=== PATIENT | male | born 1965 | race African-American/Black ===

== ENCOUNTER 2017-09-27 22:30 | Emergency (ER) | payer MEDICAID ==
[~2017-09-27] VITALS: Ht 182.9 cm; Wt 129.0 kg
[2017-09-28] MEDS ORDERED: KETOROLAC 60MG/2ML VIAL IM ONE (02:00)
[2017-09-28] MEDS ORDERED: ACETAMINOPHEN 500MG TABLET PO ONE (02:00)
[2017-09-28] MEDS ORDERED: IBUPROFEN 800MG TABLET PO ONE (09:30)
[2017-09-28 11:05] VITALS: BP 138/86
== END 2017-09-28 11:27 | disposition home or self-care (01) ==
LOC: ER 22:58
DX: M10.9 Gout, unspecified (principal); M19.90 Unspecified osteoarthritis, unspecified site; F31.9 Bipolar disorder, unspecified; F20.9 Schizophrenia, unspecified; I10 Essential (primary) hypertension
CPT/HCPCS: 96372; 99283; J1885; Z7610

== ENCOUNTER 2019-01-28 03:36 | Emergency (ER) | payer MEDICAID ==
[~2019-01-28] VITALS: Ht 180.3 cm; Wt 86.0 kg
[2019-01-28] MEDS ORDERED: KETOROLAC 60MG/2ML VIAL IM STA (04:28)
[2019-01-28] MEDS ORDERED: HYDROCODONE/ACETAMINOPHEN 5/325MG TABLET PO STA ×2 (04:28→06:10)
[2019-01-28] MEDS ORDERED: MORPHINE SULFATE 4 MG/ML CPJ (NOT FOR IM USE) IV ONE (06:30)
[2019-01-28] MEDS ORDERED: LIDOCAINE HCL/PF 1% 10 MG/ML 5ML VIAL IJ ONE (06:30)
[2019-01-28 09:31] VITALS: BP 159/81
== END 2019-01-28 09:38 | disposition home or self-care (01) ==
LOC: ER 03:36
DX: S43.014A Anterior dislocation of right humerus, initial encounter (principal); S42.209A Unspecified fracture of upper end of unspecified humerus, initial encounter for closed fracture; I10 Essential (primary) hypertension; M25.511 Pain in right shoulder; X58.XXXA Exposure to other specified factors, initial encounter; Y93.89 Activity, other specified; Y92.9 Unspecified place or not applicable
CPT/HCPCS: 73030; 96372; 96374; 99284; J1885; J2270; J3490; L3670

== ENCOUNTER 2021-01-25 10:30 | Inpatient (IN) | payer MEDICAID, OTHER ==
[~2021-01-25] VITALS: Ht 180.3 cm; Wt 109.8 kg
[2021-01-25] MEDS ORDERED: CEFTRIAXONE 1 G PREMIX 50 ML IV ONE (12:45)
[2021-01-25] MEDS ORDERED: AZITHROMYCIN 500MG/250ML 250 ML IV ONE (12:45)
[2021-01-25] MEDS ORDERED: DEXAMETHASONE 10 MG/ML VIAL IV ONE (13:00)
[2021-01-25] MEDS ORDERED: SODIUM CHLORIDE 0.9% 1,000 ML IV ONE (13:00)
[2021-01-25 14:31] LABS: BASOPHILS % 0.7 % (0.0-2.0); EOSINOPHILS % 0.7 % (0.0-5.0); HEMOGLOBIN. 11.8 g/dL (14.0-18.0); LYMPHOCYTES % 30.9 % (20.0-50.0); MEAN CORPUSCULAR HEMOGLOBIN 30.6 pg (28.0-32.0); MEAN CORPUSCULAR VOLUME 95.7 fL (80.0-94.0); MEAN PLATELET VOLUME 10.8 fl (7.4-10.4); MONOCYTES % 5.4 % (2.0-8.0); NEUTROPHILS % 62.3 % (40.0-76.0); PLATELET 257 x1000/uL (130-400); RED BLOOD CELL COUNT 3.87 mill/uL (4.7-6.1); RED CELL DISTRIBUTION WIDTH 15.8 % (11.6-14.6)
[2021-01-25 14:34] LABS: CHLORIDE 112 mEq/L (98-107)
[2021-01-25 14:42] LABS: C REACTIVE PROTEIN QUANT 8.1 mg/L (0.0-3.0); D-DIMER 1.03 mg/L FEU (<0.50); INR 1.1; PROTHROMBIN TIME 11.8 sec (9.6-11.0)
[2021-01-25 14:43] LABS: CREATINE KINASE 200 IU/L (39-308)
[2021-01-25] MEDS ORDERED: FUROSEMIDE 40MG/4ML VIAL IVP ONE (15:30)
[2021-01-25] MEDS ORDERED: ONDANSETRON HCL 4MG/2ML INJ IV ONE (16:00)
[2021-01-25] MEDS ORDERED: DIPHENHYDRAMINE 50MG/ML VIAL IV PRN (16:45)
[2021-01-25] MEDS ORDERED: ONDANSETRON HCL 4MG/2ML INJ IV PRN (16:45)
[2021-01-25] MEDS ORDERED: CEFTRIAXONE 1 G PREMIX 50 ML IV SCH (16:45)
[2021-01-25] MEDS ORDERED: ACETAMINOPHEN 325MG TABLET PO PRN (16:45)
[2021-01-25] MEDS ORDERED: ENOXAPARIN 40MG/0.4ML SYR SUBCUT SCH (18:00)
[2021-01-25 18:29] LABS: CLARITY URINE CLEAR (CLEAR); COLOR URINE YELLOW (YELLOW); KETONES URINE NEGATIVE (NEGATIVE); LEUKOCYTE ESTERASE URINE NEGATIVE (NEGATIVE); NITRITE URINE NEGATIVE (NEGATIVE); OCCULT BLOOD URINE NEGATIVE (NEGATIVE); PROTEIN URINE TRACE (NEGATIVE); SPECIFIC GRAVITY URINE 1.007 (1.005-1.030); UROBILINOGEN URINE 0.2 E.U./dL (0.2-1.0)
[2021-01-25] MEDS ORDERED: QUET50TA PO (21:59)
[2021-01-25 22:03] VITALS: BP 171/89
[2021-01-25 22:07] VITALS: BP 171/89
[2021-01-25] MEDS ORDERED: IOHEXOL-350 100 ML BOTTLE ONE (23:21)
[2021-01-26 00:05] VITALS: BP 164/100
[2021-01-26] MEDS: CLONIDINE 0.1MG TABLET PO PRN ×2 (00:06→13:10)
[2021-01-26] MEDS ORDERED: LISI20TA31 PO (01:45)
[2021-01-26 04:00] VITALS: BP 139/70
[2021-01-26 07:01] LABS: BASOPHILS % 0.3 % (0.0-2.0); HEMATOCRIT. 35.4 % (42.0-52.0); HEMOGLOBIN. 11.4 g/dL (14.0-18.0); LYMPHOCYTES % 10.3 % (20.0-50.0); MEAN CORPUSCULAR HEMOGLOBIN 30.9 pg (28.0-32.0); MEAN CORPUSCULAR VOLUME 95.6 fL (80.0-94.0); MEAN PLATELET VOLUME 10.5 fl (7.4-10.4); MONOCYTES % 3.4 % (2.0-8.0); PLATELET 230 x1000/uL (130-400); RED BLOOD CELL COUNT 3.71 mill/uL (4.7-6.1); RED CELL DISTRIBUTION WIDTH 15.6 % (11.6-14.6)
[2021-01-26 07:21] LABS: CHLORIDE 103 mEq/L (98-107)
[2021-01-26 07:57] LABS: LDL CHOLESTEROL 87 mg/dL (5-100)
[2021-01-26 07:58] LABS: HDL CHOLESTEROL 37 mg/dL (40-59)
[2021-01-26 08:00] VITALS: BP 130/92
[2021-01-26] MEDS ORDERED: FUROSEMIDE 20MG/2ML VIAL IVP SCH (09:00)
[2021-01-26] MEDS ORDERED: AZITHROMYCIN 500 MG in DEXT 5% WATER 250 ML IV SCH (09:00)
[2021-01-26] MEDS: DEXAMETHASONE 10 MG/ML VIAL IV SCH (09:07)
[2021-01-26] MEDS: FUROSEMIDE 20MG/2ML VIAL IVP SCH ×2 (10:09→16:09)
[2021-01-26] MEDS: ENOXAPARIN 40MG/0.4ML SYR SUBCUT SCH ×2 (10:09→17:36)
[2021-01-26 10:34] LABS: BG BASE EXCESS -1.9 mmol/L (-2.0-2.0); BG CARBOXYHEMOGLOBIN 0.4 % (0.5-1.5); BG DEOXYHEMOGLOBIN 1.6 % (0.0-5.0); BG FRACTION INSPIRED OXYGEN 36; BG METHEMOGLOBIN 0.1 % (0.0-1.5); BG OXYGEN SATURATION 98.4 % (92.0-98.5); BG OXYHEMOGLOBIN 97.9 % (94.0-97.0); BG PCO2 39.6 mmHg (35.0-45.0); BG PH 7.382 (7.350-7.450); BG PO2 136.2 mmHg (75.0-100.0); BG SAMPLE SITE LEFT BRACHIAL; BG TOTAL HEMOGLOBIN 12.4 g/dL (12.0-18.0); BG VENT MODE NASAL CANNULA
[2021-01-26 12:00] VITALS: BP 132/93
[2021-01-26] MEDS: CEFTRIAXONE 1,000 MG in DEXTROSE 5% WATER 50 ML IV SCH (13:10)
[2021-01-26] MEDS: DILTIAZEM HCL 60MG TABLET PO SCH ×2 (13:10→22:09)
[2021-01-26] MEDS ORDERED: DILTIAZEM HCL 5MG/ML 5ML VIAL IV PRN (15:45)
[2021-01-26 16:00] VITALS: BP 128/92
[2021-01-26 20:02] VITALS: BP 128/95
[2021-01-27] VITALS: BP 124/93
[2021-01-27 04:00] VITALS: BP 136/108
[2021-01-27] MEDS: DILTIAZEM HCL 60MG TABLET PO SCH (06:01)
[2021-01-27] MEDS: ENOXAPARIN 40MG/0.4ML SYR SUBCUT SCH (06:02)
[2021-01-27 06:21] LABS: BASOPHILS % 0.5 % (0.0-2.0); HEMATOCRIT. 33.3 % (42.0-52.0); HEMOGLOBIN. 10.7 g/dL (14.0-18.0); LYMPHOCYTES % 7.1 % (20.0-50.0); MEAN CORPUSCULAR HEMOGLOBIN 30.8 pg (28.0-32.0); MEAN CORPUSCULAR VOLUME 95.9 fL (80.0-94.0); MEAN PLATELET VOLUME 11.1 fl (7.4-10.4); MONOCYTES % 3.7 % (2.0-8.0); NEUTROPHILS % 88.7 % (40.0-76.0); PLATELET 218 x1000/uL (130-400); RED BLOOD CELL COUNT 3.48 mill/uL (4.7-6.1); RED CELL DISTRIBUTION WIDTH 15.3 % (11.6-14.6)
[2021-01-27] MEDS: FUROSEMIDE 20MG/2ML VIAL IVP SCH ×2 (08:05→17:40)
[2021-01-27] MEDS: DEXAMETHASONE 10 MG/ML VIAL IV SCH (08:06)
[2021-01-27 08:08] VITALS: BP 109/90
[2021-01-27] MEDS ORDERED: AZITHROMYCIN 500 MG in DEXT 5% WATER 250 ML IV SCH (09:00)
[2021-01-27] MEDS ORDERED: CARVEDILOL 3.125 MG TABLET PO NR (10:15)
[2021-01-27 11:47] VITALS: BP 146/100
[2021-01-27] MEDS: DILTIAZEM HCL 30MG TABLET PO SCH ×3 (12:52→23:24)
[2021-01-27] MEDS: CEFTRIAXONE 1,000 MG in DEXTROSE 5% WATER 50 ML IV SCH (14:04)
[2021-01-27 16:20] VITALS: BP 126/78
[2021-01-27] MEDS: APIXABAN 5 MG TABLET PO SCH (17:41)
[2021-01-27 20:00] VITALS: BP 134/102
[2021-01-27] MEDS: CARVEDILOL 3.125 MG TABLET PO SCH (21:09)
[2021-01-28] VITALS: BP 121/89
[2021-01-28 04:00] VITALS: BP 129/76
[2021-01-28] MEDS: DILTIAZEM HCL 30MG TABLET PO SCH ×3 (05:38→17:59)
[2021-01-28 06:57] LABS: HEMATOCRIT. 36.3 % (42.0-52.0); HEMOGLOBIN. 11.6 g/dL (14.0-18.0); MEAN CORPUSCULAR HEMOGLOBIN 30.2 pg (28.0-32.0); MEAN CORPUSCULAR VOLUME 94.8 fL (80.0-94.0); MEAN PLATELET VOLUME 11.5 fl (7.4-10.4); PLATELET 248 x1000/uL (130-400); RED BLOOD CELL COUNT 3.83 mill/uL (4.7-6.1); RED CELL DISTRIBUTION WIDTH 15.8 % (11.6-14.6)
[2021-01-28 08:00] VITALS: BP 129/69
[2021-01-28 08:27] LABS: CHLORIDE 103 mEq/L (98-107)
[2021-01-28] MEDS: CARVEDILOL 3.125 MG TABLET PO SCH (09:56)
[2021-01-28] MEDS: APIXABAN 5 MG TABLET PO SCH ×2 (09:57→17:59)
[2021-01-28] MEDS: FUROSEMIDE 20MG/2ML VIAL IVP SCH ×2 (09:57→18:00)
[2021-01-28 12:00] VITALS: BP 126/70
[2021-01-28] MEDS ORDERED: DIGOXIN 500MCG/2ML AMP IV SCH ×2 (12:30→14:30)
[2021-01-28 16:00] VITALS: BP 99/66
[2021-01-28] MEDS: DIGOXIN 500MCG/2ML AMP IV SCH (17:59)
[2021-01-28 18:15] LABS: PLATELET ESTIMATE NORMAL
[2021-01-28] MEDS: CARVEDILOL 6.25 MG TABLET PO SCH (21:43)
[2021-01-29] MEDS: DILTIAZEM HCL 30MG TABLET PO SCH ×4 (00:37→17:20)
[2021-01-29 04:00] VITALS: BP 115/81
[2021-01-29 08:00] VITALS: BP 130/85
[2021-01-29] MEDS: APIXABAN 5 MG TABLET PO SCH ×2 (08:34→17:21)
[2021-01-29] MEDS: CARVEDILOL 6.25 MG TABLET PO SCH (08:36)
[2021-01-29] MEDS: FUROSEMIDE 20MG/2ML VIAL IVP SCH ×2 (08:38→17:20)
[2021-01-29 12:00] VITALS: BP 125/82
[2021-01-29] MEDS ORDERED: FURO40TA5 MT (16:59)
[2021-01-29] MEDS ORDERED: APIX5TAB PO (16:59)
[2021-01-29] MEDS ORDERED: COR6 PO (16:59)
[2021-01-29] MEDS ORDERED: DILT30TA38 PO (16:59)
[2021-01-29] MEDS: DIGOXIN 500MCG/2ML AMP IV SCH (17:19)
[2021-01-29 18:10] VITALS: BP 105/69
== END 2021-01-29 19:00 | disposition home or self-care (01) | DRG 133 ==
LOC: ER 10:30 → 7WST 15:52 → EDBEDREQ 16:16 → ENRESERV 20:02 → 6WST 01-26 23:13
PROVIDERS: ADMIT Internal Medicine; ATTEND Internal Medicine
DX: J96.01 Acute respiratory failure with hypoxia (principal); I50.23 Acute on chronic systolic (congestive) heart failure; N17.9 Acute kidney failure, unspecified; J18.9 Pneumonia, unspecified organism; I47.1 Supraventricular tachycardia; I13.0 Hypertensive heart and chronic kidney disease with heart failure and stage 1 through stage 4 chronic kidney disease, or unspecified chronic kidney disease; I48.92 Unspecified atrial flutter; I48.91 Unspecified atrial fibrillation; E78.5 Hyperlipidemia, unspecified; F20.9 Schizophrenia, unspecified; E66.9 Obesity, unspecified; F99 Mental disorder, not otherwise specified; D64.9 Anemia, unspecified; Z20.822 Contact with and (suspected) exposure to COVID-19; N18.9 Chronic kidney disease, unspecified; Z79.01 Long term (current) use of anticoagulants; Z79.899 Other long term (current) drug therapy; Z68.33 Body mass index [BMI] 33.0-33.9, adult
CPT/HCPCS: 36415; 36600; 71045; 71275; 80048; 80053; 80061; 81003; 82375; 82550; 82728; 82805; 83605; 83615; 83735; 83880; 84145; 84443; 84484; 85025; 85379; 85384; 86140; 86141; 87426; 93005; 93306; 93970; 99291; J0456; J0696; J1100; J1160; J1650; J1940; J2405; J3490; J7030; J7060; Q9967; U0003; U0005; A4315

== ENCOUNTER 2021-10-04 08:47 | Emergency (ER) | payer MEDICAID, OTHER ==
[~2021-10-04] VITALS: Ht 182.9 cm; Wt 85.0 kg
[~2021-10-04 08:47] MED LIST: APIX5TAB MT; COR12 PO; DILT90TA2 PO; FURO40TA5 MT; LOSA25TA3 PO; METO5TAB7 PO; QUET50TA PO; TRAM50TA3 PO
[2021-10-04 14:17] LABS: BASOPHILS % 0.7 % (0.0-2.0); HEMATOCRIT. 37.3 % (42.0-52.0); HEMOGLOBIN. 11.9 g/dL (14.0-18.0); LYMPHOCYTES % 31.9 % (20.0-50.0); MEAN CORPUSCULAR HEMOGLOBIN 29.2 pg (28.0-32.0); MEAN CORPUSCULAR VOLUME 91.9 fL (80.0-94.0); MEAN PLATELET VOLUME 9.8 fl (7.4-10.4); MONOCYTES % 4.9 % (2.0-8.0); NEUTROPHILS % 61.5 % (40.0-76.0); PLATELET 306 x1000/uL (130-400); RED BLOOD CELL COUNT 4.06 mill/uL (4.7-6.1); RED CELL DISTRIBUTION WIDTH 17.2 % (11.6-14.6)
[2021-10-04 14:22] LABS: CHLORIDE 101 mEq/L (98-107)
[2021-10-04 14:26] LABS: INR 1.3; PROTHROMBIN TIME 14.1 sec (9.6-11.0)
[2021-10-04 14:34] LABS: ETHANOL BLOOD < 10 mg/dL
[2021-10-04] MEDS ORDERED: ASPIRIN 81MG TABLET PO ONE (15:30)
[2021-10-04] MEDS ORDERED: FUROSEMIDE 40MG/4ML VIAL IVP NR (15:30)
[2021-10-04 18:19] LABS: CLARITY URINE CLEAR (CLEAR); COLOR URINE YELLOW (YELLOW); KETONES URINE NEGATIVE (NEGATIVE); LEUKOCYTE ESTERASE URINE NEGATIVE (NEGATIVE); NITRITE URINE NEGATIVE (NEGATIVE); OCCULT BLOOD URINE NEGATIVE (NEGATIVE); PH URINE 6.5 (4.5-8.0); PROTEIN URINE 1+ (NEGATIVE); SPECIFIC GRAVITY URINE 1.008 (1.005-1.030); UROBILINOGEN URINE 0.2 E.U./dL (0.2-1.0)
[2021-10-04 18:46] LABS: *AMPHETAMINES SCREEN URINE NEGATIVE (NEGATIVE); *BARBITURATES SCREEN URINE NEGATIVE (NEGATIVE); *BENZODIAZEPINES SCREEN URINE NEGATIVE (NEGATIVE); *COCAINE SCREEN URINE NEGATIVE (NEGATIVE); CANNABINOID URINE SCREEN NEGATIVE (NEGATIVE); METHADONE URINE SCREEN NEGATIVE (NEGATIVE); OPIATES URINE SCREEN NEGATIVE (NEGATIVE); PHENCYCLIDINE URINE SCREEN NEGATIVE (NEGATIVE)
[2021-10-04 19:04] VITALS: BP 138/103
[2021-10-04] MEDS ORDERED: IOHEXOL-350 100 ML BOTTLE ONE (23:34)
== END 2021-10-05 00:15 | disposition admitted as inpatient to this hospital (09) ==
LOC: ER 09:03 → CANBEDREQ 22:33 → ER 10-05 00:15
DX: I11.0 Hypertensive heart disease with heart failure (principal); I50.9 Heart failure, unspecified; R00.0 Tachycardia, unspecified; F12.10 Cannabis abuse, uncomplicated; F14.10 Cocaine abuse, uncomplicated; Z20.822 Contact with and (suspected) exposure to COVID-19
CPT/HCPCS: 36415; 71045; 71275; 80053; 80305; 80320; 81003; 83605; 83690; 83880; 84145; 84484; 85025; 85610; 87040; 87086; 87426; 93005; 96374; 99285; C9803; J1940; Q9967; Z7610; G0480

== ENCOUNTER 2021-10-24 11:52 | Inpatient (IN) | payer MEDICAID, OTHER ==
[~2021-10-24] VITALS: Ht 182.9 cm; Wt 103.4 kg
[2021-10-24] MEDS ORDERED: ONDANSETRON HCL 4MG/2ML INJ IV STA (12:44)
[2021-10-24] MEDS ORDERED: MORPHINE SULFATE 4 MG/ML CPJ (NOT FOR IM USE) IV STA (12:44)
[2021-10-24] MEDS ORDERED: FUROSEMIDE 20MG/2ML VIAL IVP ONE (12:45)
[2021-10-24 12:55] LABS: BG BASE EXCESS -1.9 mmol/L (-2.0-2.0); BG CARBOXYHEMOGLOBIN 0.3 % (0.5-1.5); BG DEOXYHEMOGLOBIN 2.8 % (0.0-5.0); BG FRACTION INSPIRED OXYGEN 21; BG HCO3 ACT 21.3 mmol/L (22.0-26.0); BG METHEMOGLOBIN 0.1 % (0.0-1.5); BG OXYGEN SATURATION 97.2 % (92.0-98.5); BG OXYHEMOGLOBIN 96.8 % (94.0-97.0); BG PH 7.455 (7.350-7.450); BG PO2 102.7 mmHg (75.0-100.0); BG SAMPLE SITE RIGHT RADIAL; BG TOTAL HEMOGLOBIN 10.8 g/dL (12.0-18.0); BG VENT MODE ROOM AIR
[2021-10-24 14:17] LABS: D-DIMER 1.51 mg/L FEU (<0.50); INR 1.3; PROTHROMBIN TIME 13.5 sec (9.6-11.0)
[2021-10-24 14:41] LABS: HEMATOCRIT. 30.8 % (42.0-52.0); HEMOGLOBIN. 9.9 g/dL (14.0-18.0); MEAN PLATELET VOLUME 9.7 fl (7.4-10.4); PLATELET 243 x1000/uL (130-400); RED BLOOD CELL COUNT 3.43 mill/uL (4.7-6.1); RED CELL DISTRIBUTION WIDTH 17.4 % (11.6-14.6)
[2021-10-24 15:22] LABS: CHLORIDE 103 mEq/L (98-107)
[2021-10-24 15:38] LABS: ETHANOL BLOOD < 10 mg/dL; T4 FREE 1.29 ng/dL (0.76-1.46)
[2021-10-24 15:48] LABS: *AMPHETAMINES SCREEN URINE NEGATIVE (NEGATIVE); *BARBITURATES SCREEN URINE NEGATIVE (NEGATIVE); *BENZODIAZEPINES SCREEN URINE NEGATIVE (NEGATIVE); *COCAINE SCREEN URINE NEGATIVE (NEGATIVE); CANNABINOID URINE SCREEN NEGATIVE (NEGATIVE); CLARITY URINE CLEAR (CLEAR); COLOR URINE YELLOW (YELLOW); KETONES URINE NEGATIVE (NEGATIVE); LEUKOCYTE ESTERASE URINE NEGATIVE (NEGATIVE); METHADONE URINE SCREEN NEGATIVE (NEGATIVE); NITRITE URINE NEGATIVE (NEGATIVE); OCCULT BLOOD URINE NEGATIVE (NEGATIVE); OPIATES URINE SCREEN PRESUMTIVE POSITIVE (NEGATIVE); PH URINE 6.5 (4.5-8.0); PHENCYCLIDINE URINE SCREEN NEGATIVE (NEGATIVE); PROTEIN URINE NEGATIVE (NEGATIVE)
[2021-10-24 18:01] LABS: PLATELET ESTIMATE NORMAL
[2021-10-24] MEDS ORDERED: IPRATROPIUM/ALBUTEROL 0.5-3(2.5)MG/3ML NEB NEB PRN (22:15)
[2021-10-24] MEDS ORDERED: ACETAMINOPHEN 325MG TABLET PO PRN (22:15)
[2021-10-24] MEDS ORDERED: NA PHOS,M-B/NA PHOS,DI-BA ENEMA 118ML PR PRN (22:15)
[2021-10-24] MEDS ORDERED: GUAIFENESIN 200MG/10ML SUGAR FREE UDC PO PRN (22:15)
[2021-10-24] MEDS ORDERED: MAGNESIUM/ALUMINUM HYDROXIDE/SIMETHICONE 30ML UDC PO PRN (22:15)
[2021-10-24] MEDS ORDERED: DOCUSATE SODIUM 100MG CAPSULE PO PRN (22:15)
[2021-10-24] MEDS ORDERED: DIPHENHYDRAMINE 50MG/ML VIAL IV PRN (22:15)
[2021-10-24] MEDS ORDERED: CLONIDINE 0.1MG TABLET PO PRN (22:15)
[2021-10-24] MEDS ORDERED: IOHEXOL-350 100 ML BOTTLE ONE (22:32)
[2021-10-24] MEDS: MORPHINE SULFATE 2 MG/ML CPJ (NOT FOR IM USE) IV PRN (22:33)
[2021-10-24] MEDS: SODIUM CHLORIDE 0.9% 1,000 ML IV SCH (22:36)
[2021-10-25 01:00] VITALS: BP 133/69
[2021-10-25] MEDS: ONDANSETRON HCL 4MG/2ML INJ IV PRN ×2 (02:20→14:36)
[2021-10-25] MEDS: MORPHINE SULFATE 2 MG/ML CPJ (NOT FOR IM USE) IV PRN ×3 (02:28→20:18)
[2021-10-25 04:00] VITALS: BP 112/72
[2021-10-25 08:00] VITALS: BP 132/80
[2021-10-25 08:24] LABS: BASOPHILS % 0.8 % (0.0-2.0); EOSINOPHILS % 1.6 % (0.0-5.0); HEMATOCRIT. 31.8 % (42.0-52.0); HEMOGLOBIN. 10.5 g/dL (14.0-18.0); LYMPHOCYTES % 20.1 % (20.0-50.0); MEAN CORPUSCULAR HEMOGLOBIN 29.3 pg (28.0-32.0); MEAN CORPUSCULAR VOLUME 89.2 fL (80.0-94.0); MEAN PLATELET VOLUME 10.1 fl (7.4-10.4); MONOCYTES % 8.3 % (2.0-8.0); NEUTROPHILS % 69.2 % (40.0-76.0); PLATELET 245 x1000/uL (130-400); RED BLOOD CELL COUNT 3.57 mill/uL (4.7-6.1); RED CELL DISTRIBUTION WIDTH 17.7 % (11.6-14.6)
[2021-10-25 08:57] LABS: CHLORIDE 104 mEq/L (98-107)
[2021-10-25] MEDS: ASPIRIN 81MG EC TABLET PO SCH (09:45)
[2021-10-25] MEDS: ENOXAPARIN 40MG/0.4ML SYR SUBCUT SCH (09:46)
[2021-10-25 12:00] VITALS: BP 133/100
[2021-10-25 16:00] VITALS: BP 120/60
[2021-10-25 20:00] VITALS: BP 125/92
[2021-10-25] MEDS: SODIUM CHLORIDE 0.9% 1,000 ML IV SCH (22:39)
[2021-10-26] VITALS: BP 129/91
[2021-10-26] MEDS: MORPHINE SULFATE 2 MG/ML CPJ (NOT FOR IM USE) IV PRN ×3 (02:35→17:35)
[2021-10-26 04:00] VITALS: BP_SYST 114; BP_SYST 134; BP_DIAS 72; BP_DIAS 89
[2021-10-26 08:00] VITALS: BP 127/94
[2021-10-26] MEDS: ENOXAPARIN 40MG/0.4ML SYR SUBCUT SCH (09:51)
[2021-10-26] MEDS: ASPIRIN 81MG EC TABLET PO SCH (09:51)
[2021-10-26 11:32] LABS: T4 FREE 1.08 ng/dL (0.76-1.46)
[2021-10-26 12:00] VITALS: BP 118/83
[2021-10-26 16:00] VITALS: BP_SYST 118; BP_SYST 128; BP_DIAS 81; BP_DIAS 83
[2021-10-26] MEDS: APIXABAN 5 MG TABLET PO SCH (17:36)
[2021-10-26 20:00] VITALS: BP 120/92
[2021-10-26 20:24] LABS: CREATINE KINASE MB FRACTION 1.3 ng/mL (0.5-3.6)
[2021-10-26] MEDS: CARVEDILOL 12.5MG TABLET PO SCH (21:26)
[2021-10-27 00:30] VITALS: BP 127/82
[2021-10-27] MEDS: HYDROCODONE/ACETAMINOPHEN 5/325MG TABLET PO PRN ×4 (00:57→16:54)
[2021-10-27 01:20] LABS: CREATINE KINASE MB FRACTION 1.5 ng/mL (0.5-3.6)
[2021-10-27 04:30] VITALS: BP 125/80
[2021-10-27] MEDS: SODIUM CHLORIDE 0.9% 1,000 ML IV SCH ×2 (06:16→22:03)
[2021-10-27 08:00] VITALS: BP 115/85
[2021-10-27] MEDS: ASPIRIN 81MG EC TABLET PO SCH (08:36)
[2021-10-27] MEDS: APIXABAN 5 MG TABLET PO SCH ×2 (08:36→16:54)
[2021-10-27] MEDS: CARVEDILOL 12.5MG TABLET PO SCH ×2 (08:37→22:02)
[2021-10-27] MEDS: MORPHINE SULFATE 2 MG/ML CPJ (NOT FOR IM USE) IV PRN ×2 (09:37→23:05)
[2021-10-27 12:19] VITALS: BP 102/73
[2021-10-27] MEDS ORDERED: NALOXONE HCL 0.4MG/ML VIAL IV PRN (13:30)
[2021-10-27 16:30] VITALS: BP 117/73
[2021-10-27 20:00] VITALS: BP 111/78
[2021-10-27] MEDS: ONDANSETRON HCL 4MG/2ML INJ IV PRN (23:10)
[2021-10-28] VITALS: BP 111/83
[2021-10-28 04:00] VITALS: BP 131/95
[2021-10-28] MEDS: MORPHINE SULFATE 2 MG/ML CPJ (NOT FOR IM USE) IV PRN ×2 (05:18→12:21)
[2021-10-28] MEDS: ONDANSETRON HCL 4MG/2ML INJ IV PRN (05:18)
[2021-10-28 08:00] VITALS: BP 115/89
[2021-10-28] MEDS: HYDROCODONE/ACETAMINOPHEN 5/325MG TABLET PO PRN ×3 (08:15→22:51)
[2021-10-28] MEDS: CARVEDILOL 12.5MG TABLET PO SCH ×2 (08:15→21:00)
[2021-10-28] MEDS: ASPIRIN 81MG EC TABLET PO SCH (08:15)
[2021-10-28] MEDS: ENOXAPARIN 100MG/ML SYR SUBCUT SCH ×2 (08:16→21:56)
[2021-10-28] MEDS: LOSARTAN POTASSIUM 25 MG TABLET PO SCH (09:30)
[2021-10-28 12:00] VITALS: BP 111/69
[2021-10-28 16:00] VITALS: BP 115/84
[2021-10-28 20:00] VITALS: BP 101/83
[2021-10-28 21:09] LABS: BASOPHILS % 1.6 % (0.0-2.0); HEMATOCRIT. 32.3 % (42.0-52.0); HEMOGLOBIN. 10.3 g/dL (14.0-18.0); LYMPHOCYTES % 26.2 % (20.0-50.0); MEAN CORPUSCULAR HEMOGLOBIN 28.9 pg (28.0-32.0); MEAN CORPUSCULAR VOLUME 90.3 fL (80.0-94.0); MEAN PLATELET VOLUME 10.1 fl (7.4-10.4); NEUTROPHILS % 64.2 % (40.0-76.0); PLATELET 291 x1000/uL (130-400); RED BLOOD CELL COUNT 3.58 mill/uL (4.7-6.1); RED CELL DISTRIBUTION WIDTH 17.7 % (11.6-14.6)
[2021-10-28] MEDS: SODIUM CHLORIDE 0.9% 1,000 ML IV SCH (21:58)
[2021-10-28] MEDS ORDERED: FUROSEMIDE 40MG/4ML VIAL IVP NR (22:45)
[2021-10-29] VITALS (8 sets, daily range): BP systolic 104–141; BP diastolic 67–94
[2021-10-29] MEDS: ONDANSETRON HCL 4MG/2ML INJ IV PRN (04:12)
[2021-10-29] MEDS: MORPHINE SULFATE 2 MG/ML CPJ (NOT FOR IM USE) IV PRN ×2 (04:12→20:26)
[2021-10-29 07:51] LABS: BASOPHILS % 0.3 % (0.0-2.0); EOSINOPHILS % 1.8 % (0.0-5.0); HEMATOCRIT. 34.3 % (42.0-52.0); HEMOGLOBIN. 11.1 g/dL (14.0-18.0); INR 1.5; LYMPHOCYTES % 30.2 % (20.0-50.0); MEAN CORPUSCULAR HEMOGLOBIN 29.1 pg (28.0-32.0); MEAN CORPUSCULAR VOLUME 90.2 fL (80.0-94.0); MEAN PLATELET VOLUME 10.8 fl (7.4-10.4); MONOCYTES % 9.4 % (2.0-8.0); NEUTROPHILS % 58.3 % (40.0-76.0); PLATELET 291 x1000/uL (130-400); PROTHROMBIN TIME 15.4 sec (9.6-11.0); RED BLOOD CELL COUNT 3.81 mill/uL (4.7-6.1); RED CELL DISTRIBUTION WIDTH 18.2 % (11.6-14.6)
[2021-10-29] MEDS: HYDROCODONE/ACETAMINOPHEN 5/325MG TABLET PO PRN ×3 (07:54→23:30)
[2021-10-29] MEDS ORDERED: NICARDIPINE 100MCG/ML 10ML VIAL (CATH LAB) IV ONE (08:53)
[2021-10-29] MEDS ORDERED: PHENYLEPHRINE 100MCG/ML 10ML VIAL (CATH LAB) ONE (08:53)
[2021-10-29] MEDS ORDERED: NITROGLYCERIN 50MCG/ML 10ML VIAL (CATH LAB) IV ONE (08:53)
[2021-10-29] MEDS: ENOXAPARIN 100MG/ML SYR SUBCUT SCH ×2 (09:00→20:25)
[2021-10-29] MEDS: LOSARTAN POTASSIUM 25 MG TABLET PO SCH (09:00)
[2021-10-29] MEDS: CARVEDILOL 12.5MG TABLET PO SCH ×2 (09:00→20:26)
[2021-10-29] MEDS: ASPIRIN 81MG EC TABLET PO SCH (09:00)
[2021-10-29] MEDS ORDERED: IODIXANOL 320MG/ML 100 ML BOTTLE IV ONE (09:11)
[2021-10-29] MEDS ORDERED: DIPHENHYDRAMINE 50MG/ML VIAL ONE (09:23)
[2021-10-29] MEDS ORDERED: FENTANYL CITRATE/PF 50MCG/ML 2ML VIAL ONE (09:23)
[2021-10-29] MEDS ORDERED: MIDAZOLAM HCL 2 MG/2 ML VIAL ONE (09:23)
[2021-10-29] MEDS ORDERED: LIDOCAINE HCL 1% 10 MG/ML 10ML VIAL ONE (09:23)
[2021-10-29] MEDS ORDERED: HEPARIN 1000 UNITS/ML 10ML ONE (09:23)
[2021-10-29] MEDS ORDERED: ATROPINE SULFATE 1MG/10ML SYR IV PRN (10:45)
[2021-10-29] MEDS: SODIUM CHLORIDE 0.9% 1,000 ML IV SCH (20:38)
[2021-10-30] VITALS: BP 141/93
[2021-10-30] MEDS ORDERED: MORPHINE SULFATE 2 MG/ML CPJ (NOT FOR IM USE) IV PRN (03:30)
[2021-10-30 04:00] VITALS: BP 118/80
[2021-10-30] MEDS: HYDROCODONE/ACETAMINOPHEN 5/325MG TABLET PO PRN ×2 (05:26→10:37)
[2021-10-30 06:42] LABS: HEMATOCRIT. 33.6 % (42.0-52.0); HEMOGLOBIN. 10.9 g/dL (14.0-18.0); MEAN CORPUSCULAR HEMOGLOBIN 29.4 pg (28.0-32.0); MEAN PLATELET VOLUME 10.5 fl (7.4-10.4); PLATELET 317 x1000/uL (130-400); RED BLOOD CELL COUNT 3.69 mill/uL (4.7-6.1); RED CELL DISTRIBUTION WIDTH 18.4 % (11.6-14.6)
[2021-10-30 08:27] VITALS: BP 121/93
[2021-10-30] MEDS: ASPIRIN 81MG EC TABLET PO SCH (08:47)
[2021-10-30] MEDS: LOSARTAN POTASSIUM 25 MG TABLET PO SCH (08:47)
[2021-10-30] MEDS: CARVEDILOL 12.5MG TABLET PO SCH (08:47)
[2021-10-30] MEDS: ENOXAPARIN 100MG/ML SYR SUBCUT SCH (08:50)
[2021-10-30 12:00] VITALS: BP 125/86
[2021-10-30 12:36] VITALS: BP 125/86
[2021-10-30 15:44] LABS: PLATELET ESTIMATE NORMAL
[2021-10-30] MEDS ORDERED: APIXABAN 5 MG TABLET PO SCH (17:00)
== END 2021-10-30 14:36 | disposition home or self-care (01) | DRG 192 ==
LOC: ER 11:52 → EDBEDREQ 12:44 → MICUSO 15:59 → EDBEDREQTM 16:27 → EDBEDREQ 16:27 → EDBEDREQSVC 17:57 → 6WST 10-25 01:30
PROVIDERS: ADMIT Internal Medicine; ATTEND Internal Medicine
PROC: 4A023N7 Measurement of Cardiac Sampling and Pressure, Left Heart, Percutaneous Approach (ICD-10-PCS; principal; 2021-10-29)
PROC: B211YZZ Fluoroscopy of Multiple Coronary Arteries using Other Contrast (ICD-10-PCS; 2021-10-29)
PROC: B215YZZ Fluoroscopy of Left Heart using Other Contrast (ICD-10-PCS; 2021-10-29)
DX: I48.3 Typical atrial flutter (principal); G93.41 Metabolic encephalopathy; I50.23 Acute on chronic systolic (congestive) heart failure; I42.8 Other cardiomyopathies; D64.9 Anemia, unspecified; E11.9 Type 2 diabetes mellitus without complications; E78.5 Hyperlipidemia, unspecified; I25.10 Atherosclerotic heart disease of native coronary artery without angina pectoris; I11.0 Hypertensive heart disease with heart failure; F12.90 Cannabis use, unspecified, uncomplicated; Z20.822 Contact with and (suspected) exposure to COVID-19; I48.91 Unspecified atrial fibrillation; I07.1 Rheumatic tricuspid insufficiency; F20.9 Schizophrenia, unspecified; F14.90 Cocaine use, unspecified, uncomplicated; I25.2 Old myocardial infarction; Z79.899 Other long term (current) drug therapy; Z86.73 Personal history of transient ischemic attack (TIA), and cerebral infarction without residual deficits; Z59.00 Homelessness unspecified; Z79.01 Long term (current) use of anticoagulants; Z82.49 Family history of ischemic heart disease and other diseases of the circulatory system
CPT/HCPCS: 36415; 36600; 71045; 71275; 74174; 80048; 80053; 80061; 80305; 80320; 81003; 82375; 82550; 82553; 82805; 83036; 83605; 83735; 83880; 84145; 84439; 84443; 84484; 85025; 85379; 86850; 86900; 87426; 93005; 93306; 93458; 93970; 99291; C1769; C1887; C1893; J1200; J1644; J1650; J1940; J2250; J2270; J2370; J2405; J3010; J3490; Q9967; G0480

== ENCOUNTER 2021-11-14 11:44 | Emergency (ER) | payer OTHER ==
[~2021-11-14] VITALS: Ht 175.3 cm; Wt 105.0 kg
[2021-11-14 12:38] LABS: BASOPHILS % 1.1 % (0.0-2.0); EOSINOPHILS % 1.8 % (0.0-5.0); HEMOGLOBIN. 10.9 g/dL (14.0-18.0); LYMPHOCYTES % 16.7 % (20.0-50.0); MEAN CORPUSCULAR HEMOGLOBIN 30.4 pg (28.0-32.0); MEAN CORPUSCULAR VOLUME 89.5 fL (80.0-94.0); MEAN PLATELET VOLUME 9.3 fl (7.4-10.4); MONOCYTES % 7.8 % (2.0-8.0); NEUTROPHILS % 72.6 % (40.0-76.0); PLATELET 190 x1000/uL (130-400); RED BLOOD CELL COUNT 3.58 mill/uL (4.7-6.1); RED CELL DISTRIBUTION WIDTH 19.6 % (11.6-14.6)
[2021-11-14 12:43] LABS: CHLORIDE 107 mEq/L (98-107)
[2021-11-14 12:54] LABS: ETHANOL BLOOD < 10 mg/dL
[2021-11-14] MEDS ORDERED: NITROGLYCERIN OINT 1GM/INCH UDPKT TD NR (13:00)
[2021-11-14] MEDS ORDERED: FUROSEMIDE 40MG/4ML VIAL IV NR (13:00)
[2021-11-14] MEDS ORDERED: ASPIRIN 81MG TABLET PO NR (13:00)
[2021-11-14 13:04] LABS: *AMPHETAMINES SCREEN URINE NEGATIVE (NEGATIVE); *BARBITURATES SCREEN URINE NEGATIVE (NEGATIVE); *BENZODIAZEPINES SCREEN URINE NEGATIVE (NEGATIVE); *COCAINE SCREEN URINE NEGATIVE (NEGATIVE); CANNABINOID URINE SCREEN NEGATIVE (NEGATIVE); METHADONE URINE SCREEN NEGATIVE (NEGATIVE); OPIATES URINE SCREEN PRESUMTIVE POSITIVE (NEGATIVE); PHENCYCLIDINE URINE SCREEN NEGATIVE (NEGATIVE)
[2021-11-14 19:08] VITALS: BP 129/100
== END 2021-11-14 16:53 | disposition admitted as inpatient to this hospital (09) ==
LOC: ER 12:19 → CANBEDREQ 21:12
DX: I11.0 Hypertensive heart disease with heart failure (principal); I50.9 Heart failure, unspecified; F12.10 Cannabis abuse, uncomplicated; F11.90 Opioid use, unspecified, uncomplicated; Z86.59 Personal history of other mental and behavioral disorders
CPT/HCPCS: 36415; 71045; 80053; 80305; 80320; 83880; 84484; 85025; 93005; 96374; 99285; J1940; Z7610; G0480

== ENCOUNTER 2021-12-12 09:39 | Emergency (ER) | payer OTHER ==
[~2021-12-12] VITALS: Ht 182.9 cm; Wt 89.0 kg
[2021-12-12] MEDS ORDERED: NITROGLYCERIN 0.4MG TABLET SL SL PRN (10:15)
[2021-12-12] MEDS ORDERED: ASPIRIN 81MG TABLET PO ONE (10:15)
[2021-12-12] MEDS ORDERED: FUROSEMIDE 100MG/10ML VIAL IVP ONE (11:00)
[2021-12-12 11:03] LABS: BASOPHILS % 0.4 % (0.0-2.0); HEMATOCRIT. 32.8 % (42.0-52.0); HEMOGLOBIN. 10.7 g/dL (14.0-18.0); LYMPHOCYTES % 11.4 % (20.0-50.0); MEAN CORPUSCULAR HEMOGLOBIN 29.6 pg (28.0-32.0); MEAN CORPUSCULAR VOLUME 91.1 fL (80.0-94.0); MEAN PLATELET VOLUME 8.8 fl (7.4-10.4); NEUTROPHILS % 77.2 % (40.0-76.0); PLATELET 236 x1000/uL (130-400); RED CELL DISTRIBUTION WIDTH 20.9 % (11.6-14.6)
[2021-12-12 11:11] LABS: CHLORIDE 107 mEq/L (98-107)
[2021-12-12 12:01] VITALS: BP 128/74
== END 2021-12-12 12:55 | disposition short-term general hospital (02) ==
LOC: ER 09:39 → CANBEDREQ 19:59
DX: I11.0 Hypertensive heart disease with heart failure (principal); I50.9 Heart failure, unspecified; F12.10 Cannabis abuse, uncomplicated; Z20.822 Contact with and (suspected) exposure to COVID-19; Z86.59 Personal history of other mental and behavioral disorders
CPT/HCPCS: 36415; 71045; 80053; 83880; 84484; 85025; 87426; 93005; 96374; 99285; C9803; J1940; Z7610

== ENCOUNTER 2021-12-27 01:48 | Emergency (ER) | payer OTHER ==
[~2021-12-27] VITALS: Ht 185.4 cm; Wt 98.9 kg
[2021-12-27 03:00] LABS: BASOPHILS % 0.7 % (0.0-2.0); EOSINOPHILS % 2.6 % (0.0-5.0); HEMATOCRIT. 32.2 % (42.0-52.0); HEMOGLOBIN. 10.5 g/dL (14.0-18.0); LYMPHOCYTES % 16.9 % (20.0-50.0); MEAN CORPUSCULAR HEMOGLOBIN 29.6 pg (28.0-32.0); MEAN CORPUSCULAR VOLUME 90.9 fL (80.0-94.0); MEAN PLATELET VOLUME 9.1 fl (7.4-10.4); MONOCYTES % 7.3 % (2.0-8.0); NEUTROPHILS % 72.5 % (40.0-76.0); PLATELET 214 x1000/uL (130-400); RED BLOOD CELL COUNT 3.54 mill/uL (4.7-6.1); RED CELL DISTRIBUTION WIDTH 21.1 % (11.6-14.6)
[2021-12-27 03:08] LABS: CHLORIDE 99 mEq/L (98-107)
[2021-12-27 03:10] LABS: PROTHROMBIN TIME 11.2 sec (9.6-11.0)
[2021-12-27] MEDS ORDERED: FUROSEMIDE 40MG/4ML VIAL IVP ONE ×2 (03:45→04:00)
[2021-12-27] MEDS ORDERED: MORPHINE SULFATE 4 MG/ML CPJ (NOT FOR IM USE) IV ONE (03:45)
[2021-12-27] MEDS ORDERED: ASPIRIN 325MG EC TABLET PO ONE (04:30)
[2021-12-27 06:00] VITALS: BP 111/65
== END 2021-12-27 06:15 | disposition home or self-care (01) ==
LOC: ER 01:48
DX: I50.9 Heart failure, unspecified (principal); F20.9 Schizophrenia, unspecified; I25.10 Atherosclerotic heart disease of native coronary artery without angina pectoris; I48.92 Unspecified atrial flutter; I42.8 Other cardiomyopathies; Z95.0 Presence of cardiac pacemaker; Z79.01 Long term (current) use of anticoagulants; Z87.891 Personal history of nicotine dependence
CPT/HCPCS: 36415; 71045; 80053; 80320; 83690; 83880; 84484; 85025; 85610; 93005; 96374; 96375; 99285; J1940; J2270; G0480

== ENCOUNTER 2022-01-10 19:29 | Emergency (ER) | payer OTHER ==
[~2022-01-10] VITALS: Ht 182.9 cm; Wt 102.5 kg
[2022-01-10] MEDS ORDERED: ACETAMINOPHEN 325MG TABLET PO STA (23:19)
[2022-01-10 23:53] LABS: BASOPHILS % 0.7 % (0.0-2.0); EOSINOPHILS % 5.3 % (0.0-5.0); HEMATOCRIT. 31.1 % (42.0-52.0); HEMOGLOBIN. 10.4 g/dL (14.0-18.0); LYMPHOCYTES % 30.8 % (20.0-50.0); MEAN CORPUSCULAR HEMOGLOBIN 30.7 pg (28.0-32.0); MEAN CORPUSCULAR VOLUME 92.1 fL (80.0-94.0); MEAN PLATELET VOLUME 8.6 fl (7.4-10.4); MONOCYTES % 8.5 % (2.0-8.0); NEUTROPHILS % 54.7 % (40.0-76.0); PLATELET 209 x1000/uL (130-400); RED BLOOD CELL COUNT 3.38 mill/uL (4.7-6.1); RED CELL DISTRIBUTION WIDTH 21.1 % (11.6-14.6)
[2022-01-10 23:58] LABS: CHLORIDE 105 mEq/L (98-107)
[2022-01-11] MEDS ORDERED: ACET-2708 MT (01:40)
[2022-01-11] MEDS ORDERED: HYDROCODONE/ACETAMINOPHEN 5/325MG TABLET PO ONE (01:45)
[2022-01-11 02:01] VITALS: BP 134/78
== END 2022-01-11 02:03 | disposition home or self-care (01) ==
LOC: ER 19:29
DX: R07.89 Other chest pain (principal); I11.0 Hypertensive heart disease with heart failure; I50.9 Heart failure, unspecified; F20.9 Schizophrenia, unspecified; F12.10 Cannabis abuse, uncomplicated; Z79.899 Other long term (current) drug therapy
CPT/HCPCS: 36415; 71045; 76604; 80053; 84484; 85025; 93005; 99285; Z7610

== ENCOUNTER 2022-04-28 15:42 | Emergency (ER) | payer OTHER ==
[~2022-04-28] VITALS: Ht 185.4 cm; Wt 113.0 kg
[~2022-04-28 15:42] MED LIST changes: +ACET-2708 MT
[2022-04-28] MEDS ORDERED: ACETAMINOPHEN 325MG TABLET PO ONE (19:00)
[2022-04-28] MEDS ORDERED: IBUPROFEN 400MG TABLET PO ONE (19:00)
[2022-04-28] MEDS ORDERED: TOPUD MT (20:16)
[2022-04-28 20:31] VITALS: BP 126/78
== END 2022-04-28 20:31 | disposition home or self-care (01) ==
LOC: ER 16:29
DX: M25.562 Pain in left knee (principal); M25.572 Pain in left ankle and joints of left foot; I11.0 Hypertensive heart disease with heart failure; I50.9 Heart failure, unspecified; Z86.59 Personal history of other mental and behavioral disorders; V09.20XA Pedestrian injured in traffic accident involving unspecified motor vehicles, initial encounter; Y93.01 Activity, walking, marching and hiking; Y92.89 Other specified places as the place of occurrence of the external cause; Y99.8 Other external cause status
CPT/HCPCS: 73560; 73600; 99284

== ENCOUNTER 2022-04-29 01:38 | Emergency (ER) | payer OTHER ==
[~2022-04-29] VITALS: Ht 182.9 cm; Wt 102.0 kg
[~2022-04-29 01:38] MED LIST changes: +TOPUD MT
[2022-04-29 01:58] VITALS: BP 156/88
== END 2022-04-29 06:03 | disposition home or self-care (01) ==
LOC: ER 01:38
DX: M25.562 Pain in left knee (principal); G89.29 Other chronic pain; I11.0 Hypertensive heart disease with heart failure; I50.9 Heart failure, unspecified; F20.9 Schizophrenia, unspecified; Z95.0 Presence of cardiac pacemaker; Z86.73 Personal history of transient ischemic attack (TIA), and cerebral infarction without residual deficits
CPT/HCPCS: 99281

== ENCOUNTER 2022-10-27 07:19 | Inpatient (IN) | payer MEDICAID, OTHER ==
[~2022-10-27] VITALS: Ht 182.9 cm; Wt 103.0 kg
[2022-10-27 07:29] VITALS: O2SAT 98
[2022-10-27 08:37] LABS: HEMATOCRIT. 34.3 % (42.0-52.0); HEMOGLOBIN. 11.4 g/dL (14.0-18.0); MEAN CORPUSCULAR HEMOGLOBIN 32.3 pg (28.0-32.0); MEAN CORPUSCULAR HGB CONC 33.3 g/dL (31.0-37.0); MEAN CORPUSCULAR VOLUME 96.9 fL (80.0-94.0); MEAN PLATELET VOLUME 9.4 fl (7.4-10.4); PLATELET 169 x1000/uL (130-400); RED BLOOD CELL COUNT 3.55 mill/uL (4.7-6.1); RED CELL DISTRIBUTION WIDTH 14.2 % (11.6-14.6); WHITE BLOOD COUNT 17.5 x1000/uL (4.5-11.0)
[2022-10-27 08:52] LABS: DIFFERENTIAL COMMENT 1
[2022-10-27 08:54] LABS: CHLORIDE 106 mEq/L (98-107); INDEX HEMOLYSI 1 (1-3); INDEX ICTERIC 1 (1-4); INDEX LIPEMIC 1 (1-3); POTASSIUM 3.4 mEq/L (3.5-5.1); SODIUM 135 mEq/L (136-145)
[2022-10-27 09:04] LABS: ALANINE AMINOTRANSFERASE 43 IU/L (13-61); ALBUMIN 3.4 g/dL (3.4-5.0); ASPARTATE AMINOTRANSFERASE 70 IU/L (15-37); BILIRUBIN TOTAL 1.7 mg/dL (0.1-1.0); CALCIUM 8.8 mg/dL (8.5-10.1); CARBON DIOXIDE 21 mEq/L (21-32); CREATININE 1.2 mg/dL (0.6-1.3); GLUCOSE 124 mg/dL (70-105); NT PRO B-TYPE NATRIURETIC PEP 638 pg/mL (5-125); PROTEIN TOTAL 8.6 g/dL (6.0-8.3); TROPONIN I HIGH SENSITIVITY 15 ng/L (<78); UREA NITROGEN BLOOD 10 mg/dL (7-21)
[2022-10-27] MEDS ORDERED: AZITHROMYCIN 500MG/250ML 250 ML IV NR (09:30)
[2022-10-27] MEDS ORDERED: CEFTRIAXONE 1GM PREMIX 50 ML IV NR (09:30)
[2022-10-27] MEDS ORDERED: MORPHINE SULFATE 2 MG/ML CPJ (NOT FOR IM USE) IV ONE (09:45)
[2022-10-27 10:12] LABS: PLATELET ESTIMATE NORMAL
[2022-10-27 13:00] VITALS: BP 134/73; PULSE 100; RESP 25; TEMP 97.9
[2022-10-27] MEDS ORDERED: ONDANSETRON HCL 4MG/2ML INJ IV PRN (14:30)
[2022-10-27] MEDS ORDERED: CLONIDINE 0.1MG TABLET PO PRN (14:30)
[2022-10-27] MEDS: LOSARTAN POTASSIUM 25 MG TABLET PO SCH (14:35)
[2022-10-27] MEDS: MORPHINE SULFATE 2 MG/ML CPJ (NOT FOR IM USE) IV PRN ×2 (14:35→18:47)
[2022-10-27] MEDS ORDERED: POTASSIUM CHLORIDE 20MEQ TABLET SR PO NR (14:45)
[2022-10-27 16:00] VITALS: BP 134/73; PULSE 102; RESP 25
[2022-10-27] MEDS ORDERED: FUROSEMIDE 40MG TABLET PO SCH (17:00)
[2022-10-27] MEDS: APIXABAN 5 MG TABLET PO SCH (17:13)
[2022-10-27] MEDS: TRAMADOL 50MG TABLET PO PRN (17:14)
[2022-10-27] MEDS: FUROSEMIDE 40MG/4ML VIAL IVP SCH (17:14)
[2022-10-27] MEDS: DILTIAZEM HCL 90MG TABLET PO SCH (17:14)
[2022-10-27 20:00] VITALS: BP 131/78; PULSE 96; RESP 32; TEMP 98.3
[2022-10-27 20:57] LABS: *AMPHETAMINES SCREEN URINE NEGATIVE (NEGATIVE); *BARBITURATES SCREEN URINE NEGATIVE (NEGATIVE); *BENZODIAZEPINES SCREEN URINE NEGATIVE (NEGATIVE); *COCAINE SCREEN URINE NEGATIVE (NEGATIVE); CANNABINOID URINE SCREEN NEGATIVE (NEGATIVE); ECSTASY MDMA SCREEN URINE NEGATIVE (NEGATIVE); METHADONE URINE SCREEN NEGATIVE (NEGATIVE); OPIATES URINE SCREEN PRESUMTIVE POSITIVE (NEGATIVE); PHENCYCLIDINE URINE SCREEN NEGATIVE (NEGATIVE)
[2022-10-27] MEDS: CARVEDILOL 12.5MG TABLET PO SCH (21:00)
[2022-10-27] MEDS: ACETAMINOPHEN 325MG TABLET PO PRN (21:00)
[2022-10-27] MEDS: QUETIAPINE FUMARATE 50MG TABLET PO SCH (21:00)
[2022-10-27 22:00] LABS: INDEX HEMOLYSI 1 (1-3)
[2022-10-27 22:22] LABS: CREATINE KINASE 165 IU/L (39-308); CREATINE KINASE MB FRACTION < 1.0 ng/mL (0.5-3.6); TROPONIN I HIGH SENSITIVITY 18 ng/L (<78)
[2022-10-27 22:37] LABS: HEPATITIS B SURFACE ANTIGEN NEGATIVE
[2022-10-27 23:05] LABS: HEPATITIS C VIR.AB 0.17 INDEXVAL (0.00-0.80)
[2022-10-28] VITALS (8 sets, daily range): BP systolic 96–127; BP diastolic 51–69; PULSE 79–94; RESP 23–59; TEMP 97.8–101.3
[2022-10-28] MEDS: MORPHINE SULFATE 2 MG/ML CPJ (NOT FOR IM USE) IV PRN ×4 (02:24→21:25)
[2022-10-28] MEDS: FUROSEMIDE 40MG/4ML VIAL IVP SCH ×2 (06:09→18:53)
[2022-10-28] MEDS: DILTIAZEM HCL 90MG TABLET PO SCH ×5 (06:10→23:47)
[2022-10-28 07:29] LABS: HEMATOCRIT. 31.8 % (42.0-52.0); HEMOGLOBIN. 10.6 g/dL (14.0-18.0); MEAN CORPUSCULAR HEMOGLOBIN 32.4 pg (28.0-32.0); MEAN CORPUSCULAR HGB CONC 33.5 g/dL (31.0-37.0); MEAN CORPUSCULAR VOLUME 96.7 fL (80.0-94.0); MEAN PLATELET VOLUME 10.5 fl (7.4-10.4); PLATELET 148 x1000/uL (130-400); RED BLOOD CELL COUNT 3.28 mill/uL (4.7-6.1); RED CELL DISTRIBUTION WIDTH 14.4 % (11.6-14.6); WHITE BLOOD COUNT 15.6 x1000/uL (4.5-11.0)
[2022-10-28 07:38] LABS: POTASSIUM 3.8 mEq/L (3.5-5.1)
[2022-10-28 07:43] LABS: DIFFERENTIAL COMMENT 1
[2022-10-28 08:34] LABS: CALCIUM 8.9 mg/dL (8.5-10.1); CREATINE KINASE MB FRACTION 2.3 ng/mL (0.5-3.6); CREATININE 1.5 mg/dL (0.6-1.3)
[2022-10-28] MEDS: METOLAZONE 5MG TABLET PO SCH (09:09)
[2022-10-28] MEDS: APIXABAN 5 MG TABLET PO SCH ×2 (09:09→18:52)
[2022-10-28] MEDS: LOSARTAN POTASSIUM 25 MG TABLET PO SCH (09:10)
[2022-10-28] MEDS: CARVEDILOL 12.5MG TABLET PO SCH ×2 (09:10→20:04)
[2022-10-28] MEDS ORDERED: NALOXONE HCL 0.4MG/ML VIAL IV PRN (09:30)
[2022-10-28] MEDS: AZITHROMYCIN 500MG/250ML 250 ML IV SCH (10:32)
[2022-10-28] MEDS: CEFTRIAXONE 1,000 MG in DEXTROSE 5% WATER 50 ML IV SCH (10:33)
[2022-10-28] MEDS: TRAMADOL 50MG TABLET PO PRN ×2 (11:11→18:53)
[2022-10-28 13:49] LABS: PLATELET ESTIMATE NORMAL
[2022-10-28] MEDS ORDERED: VANCOMYCIN 2,000 MG in DEXT 5% WATER 500 ML IV NR (16:00)
[2022-10-28] MEDS: ACETAMINOPHEN 325MG TABLET PO PRN (20:03)
[2022-10-28] MEDS: QUETIAPINE FUMARATE 50MG TABLET PO SCH (20:04)
[2022-10-29] VITALS (13 sets, daily range): BP systolic 88–125; BP diastolic 39–62; PULSE 71–93; RESP 18–35; TEMP 97.7–101.7
[2022-10-29] MEDS: MORPHINE SULFATE 2 MG/ML CPJ (NOT FOR IM USE) IV PRN ×2 (04:08→21:35)
[2022-10-29] MEDS: FUROSEMIDE 40MG/4ML VIAL IVP SCH ×2 (05:39→17:01)
[2022-10-29] MEDS: DILTIAZEM HCL 90MG TABLET PO SCH (05:39)
[2022-10-29 07:08] LABS: HIV SCREEN 4G Non Reactive (Non Reactive)
[2022-10-29] MEDS: METOLAZONE 5MG TABLET PO SCH (07:47)
[2022-10-29] MEDS: APIXABAN 5 MG TABLET PO SCH ×2 (07:47→17:01)
[2022-10-29] MEDS: LOSARTAN POTASSIUM 25 MG TABLET PO SCH (07:47)
[2022-10-29] MEDS: CARVEDILOL 12.5MG TABLET PO SCH ×2 (07:50→21:35)
[2022-10-29] MEDS: AZITHROMYCIN 500MG/250ML 250 ML IV SCH (07:51)
[2022-10-29 08:01] LABS: CALCIUM 6.3 mg/dL (8.5-10.1); CREATININE 1.5 mg/dL (0.6-1.3)
[2022-10-29] MEDS: CEFTRIAXONE 1,000 MG in DEXTROSE 5% WATER 50 ML IV SCH (09:51)
[2022-10-29] MEDS: VANCOMYCIN 1.25GM PMX (XELLIA) 250 ML IV SCH ×2 (11:28→23:46)
[2022-10-29] MEDS: ACETAMINOPHEN 325MG TABLET PO PRN (12:09)
[2022-10-29 16:14] LABS: HEMATOCRIT. 32.5 % (42.0-52.0); HEMOGLOBIN. 10.6 g/dL (14.0-18.0); MEAN CORPUSCULAR HEMOGLOBIN 32.1 pg (28.0-32.0); MEAN CORPUSCULAR HGB CONC 32.6 g/dL (31.0-37.0); MEAN CORPUSCULAR VOLUME 98.5 fL (80.0-94.0); MEAN PLATELET VOLUME 9.8 fl (7.4-10.4); PLATELET 163 x1000/uL (130-400); RED CELL DISTRIBUTION WIDTH 14.6 % (11.6-14.6); WHITE BLOOD COUNT 15.4 x1000/uL (4.5-11.0)
[2022-10-29 16:15] LABS: DIFFERENTIAL COMMENT 1
[2022-10-29 16:21] LABS: POTASSIUM 3.7 mEq/L (3.5-5.1)
[2022-10-29 16:28] LABS: CALCIUM 8.8 mg/dL (8.5-10.1); CREATININE 3.1 mg/dL (0.6-1.3)
[2022-10-29 18:26] LABS: PLATELET ESTIMATE NORMAL
[2022-10-29] MEDS: QUETIAPINE FUMARATE 50MG TABLET PO SCH (21:35)
[2022-10-30] VITALS: BP 110/56; PULSE 94; RESP 24; TEMP 101.5
[2022-10-30] MEDS: ACETAMINOPHEN 325MG TABLET PO PRN ×2 (01:28→21:49)
[2022-10-30] MEDS: MORPHINE SULFATE 2 MG/ML CPJ (NOT FOR IM USE) IV PRN ×2 (01:29→08:56)
[2022-10-30 04:00] VITALS: BP 121/69; PULSE 86; RESP 25; TEMP 100.3
[2022-10-30] MEDS: FUROSEMIDE 40MG/4ML VIAL IVP SCH (05:03)
[2022-10-30 07:16] LABS: BASOPHILS % 0.2 % (0.0-2.0); HEMATOCRIT. 30.8 % (42.0-52.0); HEMOGLOBIN. 10.4 g/dL (14.0-18.0); LYMPHOCYTES % 7.4 % (20.0-50.0); MEAN CORPUSCULAR HEMOGLOBIN 32.5 pg (28.0-32.0); MEAN CORPUSCULAR HGB CONC 33.9 g/dL (31.0-37.0); MEAN CORPUSCULAR VOLUME 95.9 fL (80.0-94.0); MEAN PLATELET VOLUME 10.2 fl (7.4-10.4); MONOCYTES % 8.8 % (2.0-8.0); NEUTROPHILS % 82.6 % (40.0-76.0); PLATELET 172 x1000/uL (130-400); RED BLOOD CELL COUNT 3.21 mill/uL (4.7-6.1); RED CELL DISTRIBUTION WIDTH 14.6 % (11.6-14.6); WHITE BLOOD COUNT 13.9 x1000/uL (4.5-11.0)
[2022-10-30 07:22] LABS: POTASSIUM 3.3 mEq/L (3.5-5.1)
[2022-10-30 07:33] LABS: CALCIUM 9.1 mg/dL (8.5-10.1); CREATININE 3.2 mg/dL (0.6-1.3)
[2022-10-30] MEDS: AZITHROMYCIN 500MG in DEXTROSE 5% WATER 250ML IV SCH (08:52)
[2022-10-30] MEDS: APIXABAN 5 MG TABLET PO SCH ×2 (08:54→20:00)
[2022-10-30] MEDS: CARVEDILOL 12.5MG TABLET PO SCH ×2 (08:55→21:49)
[2022-10-30] MEDS ORDERED: FUROSEMIDE 40MG/4ML VIAL IVP SCH (09:00)
[2022-10-30] MEDS ORDERED: METOLAZONE 2.5MG TABLET PO SCH (09:00)
[2022-10-30] MEDS ORDERED: POTASSIUM CHLORIDE 20MEQ TABLET SR PO SCH (09:00)
[2022-10-30] MEDS: CEFTRIAXONE 1,000 MG in DEXTROSE 5% WATER 50 ML IV SCH (11:40)
[2022-10-30] MEDS: VANCOMYCIN 1.25GM PMX (XELLIA) 250 ML IV SCH (12:04)
[2022-10-30 14:03] LABS: TROPONIN I HIGH SENSITIVITY 18 ng/L (<78)
[2022-10-30 20:00] VITALS: BP 137/66; PULSE 92; RESP 35; TEMP 101.9
[2022-10-30] MEDS: QUETIAPINE FUMARATE 50MG TABLET PO SCH (21:49)
[2022-10-31] VITALS: BP 123/71; PULSE 74; RESP 21; TEMP 97.6
[2022-10-31 04:00] VITALS: BP 102/64; PULSE 83; RESP 19; TEMP 98.7
[2022-10-31 07:46] LABS: BASOPHILS % 0.4 % (0.0-2.0); EOSINOPHILS % 1.4 % (0.0-5.0); HEMATOCRIT. 34.4 % (42.0-52.0); HEMOGLOBIN. 11.6 g/dL (14.0-18.0); LYMPHOCYTES % 9.1 % (20.0-50.0); MEAN CORPUSCULAR HEMOGLOBIN 32.8 pg (28.0-32.0); MEAN CORPUSCULAR HGB CONC 33.8 g/dL (31.0-37.0); MEAN CORPUSCULAR VOLUME 97.2 fL (80.0-94.0); MEAN PLATELET VOLUME 10.2 fl (7.4-10.4); NEUTROPHILS % 78.1 % (40.0-76.0); PLATELET 209 x1000/uL (130-400); RED BLOOD CELL COUNT 3.54 mill/uL (4.7-6.1); RED CELL DISTRIBUTION WIDTH 14.6 % (11.6-14.6); WHITE BLOOD COUNT 12.8 x1000/uL (4.5-11.0)
[2022-10-31 08:00] VITALS: BP 104/57; PULSE 84; RESP 29; TEMP 97
[2022-10-31 08:03] LABS: CHLORIDE 93 mEq/L (98-107); INDEX HEMOLYSI 1 (1-3); INDEX ICTERIC 1 (1-4); INDEX LIPEMIC 1 (1-3); SODIUM 127 mEq/L (136-145)
[2022-10-31 08:18] LABS: ALANINE AMINOTRANSFERASE 53 IU/L (13-61); ALBUMIN 2.5 g/dL (3.4-5.0); ASPARTATE AMINOTRANSFERASE 60 IU/L (15-37); BILIRUBIN TOTAL 0.9 mg/dL (0.1-1.0); CALCIUM 9.4 mg/dL (8.5-10.1); CARBON DIOXIDE 23 mEq/L (21-32); CREATINE KINASE 333 IU/L (39-308); CREATININE 2.5 mg/dL (0.6-1.3); GLUCOSE 87 mg/dL (70-105); PHOSPHORUS 4.7 mg/dL (2.5-4.9); PROTEIN TOTAL 8.6 g/dL (6.0-8.3); UREA NITROGEN BLOOD 53 mg/dL (7-21)
[2022-10-31] MEDS: CARVEDILOL 12.5MG TABLET PO SCH ×2 (08:31→21:48)
[2022-10-31] MEDS: APIXABAN 5 MG TABLET PO SCH ×2 (08:32→18:02)
[2022-10-31] MEDS: AZITHROMYCIN 500MG in DEXTROSE 5% WATER 250ML IV SCH (08:37)
[2022-10-31] MEDS: CEFTRIAXONE 1,000 MG in DEXTROSE 5% WATER 50 ML IV SCH (11:15)
[2022-10-31 12:00] VITALS: BP 112/56; PULSE 85; RESP 26; TEMP 98.5
[2022-10-31] MEDS: HYDROCODONE/ACETAMINOPHEN 5/325MG TABLET PO PRN ×2 (14:29→21:49)
[2022-10-31 16:00] VITALS: BP 133/73; PULSE 101; RESP 23; TEMP 98.2
[2022-10-31] MEDS: MORPHINE SULFATE 2 MG/ML CPJ (NOT FOR IM USE) IV PRN (18:03)
[2022-10-31 20:00] VITALS: BP 135/75; PULSE 88; RESP 21; TEMP 100.5
[2022-10-31] MEDS: QUETIAPINE FUMARATE 50MG TABLET PO SCH (21:47)
[2022-11-01] VITALS: PULSE 86; RESP 20; TEMP 99.3
[2022-11-01 04:00] VITALS: BP 107/87; PULSE 85; RESP 22; TEMP 98.9
[2022-11-01] MEDS: MORPHINE SULFATE 2 MG/ML CPJ (NOT FOR IM USE) IV PRN (05:57)
[2022-11-01 06:32] LABS: HEMATOCRIT. 30.9 % (42.0-52.0); HEMOGLOBIN. 10.5 g/dL (14.0-18.0); MEAN CORPUSCULAR HEMOGLOBIN 32.2 pg (28.0-32.0); MEAN CORPUSCULAR HGB CONC 33.9 g/dL (31.0-37.0); MEAN CORPUSCULAR VOLUME 95.1 fL (80.0-94.0); MEAN PLATELET VOLUME 9.9 fl (7.4-10.4); PLATELET 256 x1000/uL (130-400); RED BLOOD CELL COUNT 3.25 mill/uL (4.7-6.1); RED CELL DISTRIBUTION WIDTH 14.5 % (11.6-14.6); WHITE BLOOD COUNT 14.2 x1000/uL (4.5-11.0)
[2022-11-01 07:18] LABS: DIFFERENTIAL COMMENT 1
[2022-11-01 07:44] LABS: POTASSIUM 4.2 mEq/L (3.5-5.1)
[2022-11-01 07:52] LABS: CALCIUM 9.4 mg/dL (8.5-10.1); CREATININE 1.8 mg/dL (0.6-1.3); PHOSPHORUS 3.7 mg/dL (2.5-4.9)
[2022-11-01 08:00] VITALS: BP 107/66; PULSE 87; RESP 19; TEMP 99.5
[2022-11-01] MEDS: APIXABAN 5 MG TABLET PO SCH ×2 (08:09→16:55)
[2022-11-01] MEDS: CARVEDILOL 12.5MG TABLET PO SCH ×2 (08:10→21:00)
[2022-11-01] MEDS: HYDROCODONE/ACETAMINOPHEN 5/325MG TABLET PO PRN ×2 (08:31→16:54)
[2022-11-01] MEDS: SODIUM CHLORIDE 0.9% 1,000 ML IV SCH (10:11)
[2022-11-01] MEDS: CEFTRIAXONE 1,000 MG in DEXTROSE 5% WATER 50 ML IV SCH (10:11)
[2022-11-01 12:00] VITALS: BP 97/48; PULSE 78; RESP 15; TEMP 99.6
[2022-11-01 13:36] LABS: PLATELET ESTIMATE NORMAL
[2022-11-01 16:00] VITALS: BP 118/72; PULSE 80; RESP 14; TEMP 99.9
[2022-11-01] MEDS ORDERED: VANCOMYCIN 750MG PREMIX 150 ML IV SCH (18:00)
[2022-11-01 20:00] VITALS: BP 123/72; PULSE 80; RESP 15; TEMP 99
[2022-11-01] MEDS: QUETIAPINE FUMARATE 50MG TABLET PO SCH (20:59)
[2022-11-01] MEDS: ACETAMINOPHEN 325MG TABLET PO PRN (20:59)
[2022-11-02] VITALS: BP 113/68; PULSE 70; RESP 18; TEMP 99
[2022-11-02 04:00] VITALS: BP 127/75; PULSE 71; RESP 17; TEMP 99
[2022-11-02] MEDS: SODIUM CHLORIDE 0.9% 1,000 ML IV SCH (05:42)
[2022-11-02 06:42] LABS: HEMATOCRIT. 30.9 % (42.0-52.0); HEMOGLOBIN. 10.6 g/dL (14.0-18.0); MEAN CORPUSCULAR HGB CONC 34.3 g/dL (31.0-37.0); MEAN CORPUSCULAR VOLUME 96.3 fL (80.0-94.0); MEAN PLATELET VOLUME 10.4 fl (7.4-10.4); PLATELET 284 x1000/uL (130-400); RED BLOOD CELL COUNT 3.21 mill/uL (4.7-6.1); RED CELL DISTRIBUTION WIDTH 14.9 % (11.6-14.6)
[2022-11-02 06:59] LABS: DIFFERENTIAL COMMENT 1
[2022-11-02 07:05] LABS: CHLORIDE 94 mEq/L (98-107); INDEX HEMOLYSI 4 (1-3); INDEX ICTERIC 1 (1-4); INDEX LIPEMIC 1 (1-3); SODIUM 128 mEq/L (136-145)
[2022-11-02 07:13] LABS: ALANINE AMINOTRANSFERASE 68 IU/L (13-61); ALBUMIN 2.5 g/dL (3.4-5.0); ASPARTATE AMINOTRANSFERASE 73 IU/L (15-37); BILIRUBIN TOTAL 0.8 mg/dL (0.1-1.0); CALCIUM 9.5 mg/dL (8.5-10.1); CARBON DIOXIDE 25 mEq/L (21-32); GLUCOSE 81 mg/dL (70-105); PHOSPHORUS 4.7 mg/dL (2.5-4.9); PROTEIN TOTAL 8.9 g/dL (6.0-8.3); UREA NITROGEN BLOOD 79 mg/dL (7-21)
[2022-11-02 07:18] LABS: POTASSIUM 4.4 mEq/L (3.5-5.1)
[2022-11-02 08:00] VITALS: BP 115/68; PULSE 78; RESP 24; TEMP 100
[2022-11-02] MEDS: APIXABAN 5 MG TABLET PO SCH ×2 (09:53→17:50)
[2022-11-02] MEDS: CARVEDILOL 12.5MG TABLET PO SCH ×2 (09:53→22:09)
[2022-11-02] MEDS: HYDROCODONE/ACETAMINOPHEN 5/325MG TABLET PO PRN ×2 (09:58→17:49)
[2022-11-02 12:00] VITALS: BP 120/70; PULSE 72; RESP 20; TEMP 99
[2022-11-02 14:10] LABS: PLATELET ESTIMATE NORMAL
[2022-11-02 16:00] VITALS: BP 132/72; PULSE 95; RESP 25; TEMP 98.7
[2022-11-02 20:00] VITALS: BP 130/82; PULSE 69; RESP 25; TEMP 98.5
[2022-11-02] MEDS: QUETIAPINE FUMARATE 50MG TABLET PO SCH (22:07)
[2022-11-03] VITALS: BP 142/78; PULSE 66; RESP 16; TEMP 98
[2022-11-03] MEDS: SODIUM CHLORIDE 0.9% 1,000 ML IV SCH ×2 (01:39→21:17)
[2022-11-03 04:00] VITALS: BP 152/83; PULSE 71; RESP 17; TEMP 98.4
[2022-11-03 07:18] LABS: HEMATOCRIT. 29.5 % (42.0-52.0); MEAN CORPUSCULAR HEMOGLOBIN 32.2 pg (28.0-32.0); MEAN CORPUSCULAR HGB CONC 33.9 g/dL (31.0-37.0); MEAN PLATELET VOLUME 9.5 fl (7.4-10.4); PLATELET 325 x1000/uL (130-400); RED CELL DISTRIBUTION WIDTH 14.7 % (11.6-14.6); WHITE BLOOD COUNT 12.1 x1000/uL (4.5-11.0)
[2022-11-03 07:29] LABS: DIFFERENTIAL COMMENT 1
[2022-11-03 08:00] VITALS: BP 125/79; PULSE 80; RESP 18; TEMP 96.5
[2022-11-03 08:35] LABS: CALCIUM 9.2 mg/dL (8.5-10.1); POTASSIUM 4.1 mEq/L (3.5-5.1)
[2022-11-03 08:38] LABS: CREATININE 1.6 mg/dL (0.6-1.3); PHOSPHORUS 4.1 mg/dL (2.5-4.9)
[2022-11-03 09:03] LABS: CLARITY URINE CLEAR (CLEAR); COLOR URINE YELLOW (YELLOW); GLUCOSE URINE NEGATIVE (NEGATIVE); KETONES URINE NEGATIVE (NEGATIVE); LEUKOCYTE ESTERASE URINE NEGATIVE (NEGATIVE); NITRITE URINE NEGATIVE (NEGATIVE); OCCULT BLOOD URINE NEGATIVE (NEGATIVE); PH URINE 5.5 (4.5-8.0); PROTEIN URINE TRACE (NEGATIVE); SPECIFIC GRAVITY URINE 1.012 (1.005-1.030); UROBILINOGEN URINE 0.2 E.U./dL (0.2-1.0)
[2022-11-03] MEDS: APIXABAN 5 MG TABLET PO SCH ×2 (09:21→19:26)
[2022-11-03] MEDS: CARVEDILOL 12.5MG TABLET PO SCH ×2 (09:21→21:23)
[2022-11-03 10:00] LABS: BACTERIA URINE FEW; RBC URINE NONE SEEN /hpf (0-2); SQUAMOUS EPITHELIAL CELL URINE NONE SEEN /lpf (RARE/1+); WBC URINE NONE SEEN /hpf (0-2)
[2022-11-03 12:00] VITALS: BP 121/81; PULSE 67; RESP 18; TEMP 96.4
[2022-11-03 16:00] VITALS: BP 151/63; PULSE 70; RESP 17; TEMP 97.1
[2022-11-03 20:00] VITALS: BP 135/83; PULSE 67; RESP 20; TEMP 98.9
[2022-11-03 20:55] LABS: PLATELET ESTIMATE NORMAL
[2022-11-03] MEDS: ACETAMINOPHEN 325MG TABLET PO PRN (21:18)
[2022-11-03] MEDS: QUETIAPINE FUMARATE 50MG TABLET PO SCH (21:18)
[2022-11-04] VITALS: BP 114/70; PULSE 67; RESP 19; TEMP 98.3
[2022-11-04] MEDS: ACETAMINOPHEN 325MG TABLET PO PRN (01:16)
[2022-11-04 06:36] LABS: BASOPHILS % 0.7 % (0.0-2.0); EOSINOPHILS % 3.4 % (0.0-5.0); HEMATOCRIT. 28.5 % (42.0-52.0); HEMOGLOBIN. 9.6 g/dL (14.0-18.0); LYMPHOCYTES % 13.3 % (20.0-50.0); MEAN CORPUSCULAR HEMOGLOBIN 32.8 pg (28.0-32.0); MEAN CORPUSCULAR HGB CONC 33.7 g/dL (31.0-37.0); MEAN CORPUSCULAR VOLUME 97.3 fL (80.0-94.0); MEAN PLATELET VOLUME 9.2 fl (7.4-10.4); MONOCYTES % 7.1 % (2.0-8.0); NEUTROPHILS % 75.5 % (40.0-76.0); PLATELET 360 x1000/uL (130-400); RED BLOOD CELL COUNT 2.93 mill/uL (4.7-6.1); RED CELL DISTRIBUTION WIDTH 14.8 % (11.6-14.6); WHITE BLOOD COUNT 9.9 x1000/uL (4.5-11.0)
[2022-11-04 07:13] LABS: QFT MITOGEN VALUE 0.32 IU/mL (.); QFT TB GOLD PLUS Indeterminate (Negative)
[2022-11-04 07:38] LABS: CALCIUM 9.2 mg/dL (8.5-10.1); POTASSIUM 4.2 mEq/L (3.5-5.1)
[2022-11-04 07:45] LABS: CREATININE 1.5 mg/dL (0.6-1.3); PHOSPHORUS 4.8 mg/dL (2.5-4.9)
[2022-11-04] MEDS: CARVEDILOL 12.5MG TABLET PO SCH ×2 (08:23→20:46)
[2022-11-04] MEDS: APIXABAN 5 MG TABLET PO SCH ×2 (08:23→16:38)
[2022-11-04] MEDS: HYDRALAZINE HCL 50MG TABLET PO SCH ×2 (10:21→20:45)
[2022-11-04 12:17] VITALS: BP 123/72; PULSE 83; RESP 20; TEMP 98.4
[2022-11-04 13:10] LABS: CREATINE KINASE 102 IU/L (39-308); INDEX HEMOLYSI 1 (1-3)
[2022-11-04] MEDS ORDERED: VANCOMYCIN 1500MG in DEXTROSE 5% WATER 250ML IV SCH ×2 (14:00→15:00)
[2022-11-04 16:00] VITALS: BP 123/72; PULSE 83; RESP 20; TEMP 98.4
[2022-11-04] MEDS: SODIUM CHLORIDE 0.9% 1,000 ML IV SCH (16:50)
[2022-11-04 20:00] VITALS: BP 144/98; PULSE 77; RESP 17; TEMP 98.3
[2022-11-04] MEDS: QUETIAPINE FUMARATE 50MG TABLET PO SCH (20:46)
[2022-11-05] VITALS: BP 106/61; PULSE 74; RESP 17; TEMP 98.6
[2022-11-05] MEDS: ACETAMINOPHEN 325MG TABLET PO PRN ×2 (01:35→15:32)
[2022-11-05 04:00] VITALS: BP 138/80; PULSE 74; RESP 17; TEMP 98.4
[2022-11-05 06:28] LABS: BASOPHILS % 0.5 % (0.0-2.0); EOSINOPHILS % 2.3 % (0.0-5.0); HEMATOCRIT. 30.8 % (42.0-52.0); HEMOGLOBIN. 9.8 g/dL (14.0-18.0); LYMPHOCYTES % 10.1 % (20.0-50.0); MEAN CORPUSCULAR HEMOGLOBIN 31.7 pg (28.0-32.0); MEAN CORPUSCULAR HGB CONC 31.9 g/dL (31.0-37.0); MEAN CORPUSCULAR VOLUME 99.2 fL (80.0-94.0); MONOCYTES % 6.2 % (2.0-8.0); NEUTROPHILS % 80.9 % (40.0-76.0); PLATELET 418 x1000/uL (130-400); RED BLOOD CELL COUNT 3.11 mill/uL (4.7-6.1); WHITE BLOOD COUNT 11.9 x1000/uL (4.5-11.0)
[2022-11-05 06:47] LABS: CHLORIDE 101 mEq/L (98-107); INDEX HEMOLYSI 1 (1-3); INDEX ICTERIC 1 (1-4); INDEX LIPEMIC 1 (1-3); POTASSIUM 4.5 mEq/L (3.5-5.1); SODIUM 133 mEq/L (136-145)
[2022-11-05 06:55] LABS: CALCIUM 9.2 mg/dL (8.5-10.1); CARBON DIOXIDE 23 mEq/L (21-32); CREATININE 1.3 mg/dL (0.6-1.3); GLUCOSE 96 mg/dL (70-105); PHOSPHORUS 4.4 mg/dL (2.5-4.9); UREA NITROGEN BLOOD 42 mg/dL (7-21)
[2022-11-05 08:01] VITALS: BP 135/80; PULSE 75; RESP 18; TEMP 98.5
[2022-11-05] MEDS: CARVEDILOL 12.5MG TABLET PO SCH ×2 (09:37→20:24)
[2022-11-05] MEDS: HYDRALAZINE HCL 50MG TABLET PO SCH ×2 (09:37→20:24)
[2022-11-05] MEDS: APIXABAN 5 MG TABLET PO SCH ×2 (09:38→17:51)
[2022-11-05] MEDS ORDERED: RISPERIDONE 0.5MG TABLET PO SCH (11:00)
[2022-11-05 12:02] VITALS: BP 157/95; PULSE 72; RESP 20; TEMP 98.4
[2022-11-05 16:00] VITALS: BP 140/90; PULSE 73; RESP 17; TEMP 98.4
[2022-11-05 20:24] VITALS: BP 129/83; PULSE 61; RESP 21; TEMP 98.9
[2022-11-05] MEDS: QUETIAPINE FUMARATE 50MG TABLET PO SCH (20:24)
[2022-11-05] MEDS: VANCOMYCIN 1500MG in DEXTROSE 5% WATER 250ML IV SCH (20:24)
[2022-11-06] VITALS: BP 127/83; PULSE 68; RESP 20; TEMP 98.9
[2022-11-06 04:00] VITALS: BP 128/72; PULSE 70; RESP 18; TEMP 97.7
[2022-11-06 05:53] LABS: BASOPHILS % 0.5 % (0.0-2.0); EOSINOPHILS % 2.1 % (0.0-5.0); HEMATOCRIT. 31.1 % (42.0-52.0); HEMOGLOBIN. 10.4 g/dL (14.0-18.0); LYMPHOCYTES % 13.7 % (20.0-50.0); MEAN CORPUSCULAR HEMOGLOBIN 32.2 pg (28.0-32.0); MEAN CORPUSCULAR HGB CONC 33.4 g/dL (31.0-37.0); MEAN CORPUSCULAR VOLUME 96.4 fL (80.0-94.0); MEAN PLATELET VOLUME 8.9 fl (7.4-10.4); MONOCYTES % 5.6 % (2.0-8.0); NEUTROPHILS % 78.1 % (40.0-76.0); PLATELET 445 x1000/uL (130-400); RED BLOOD CELL COUNT 3.22 mill/uL (4.7-6.1); RED CELL DISTRIBUTION WIDTH 14.7 % (11.6-14.6); WHITE BLOOD COUNT 11.3 x1000/uL (4.5-11.0)
[2022-11-06 07:02] LABS: CHLORIDE 100 mEq/L (98-107); INDEX HEMOLYSI 1 (1-3); INDEX ICTERIC 1 (1-4); INDEX LIPEMIC 1 (1-3); POTASSIUM 4.6 mEq/L (3.5-5.1); SODIUM 133 mEq/L (136-145)
[2022-11-06 07:10] LABS: CALCIUM 9.8 mg/dL (8.5-10.1); CARBON DIOXIDE 24 mEq/L (21-32); CREATININE 1.3 mg/dL (0.6-1.3); GLUCOSE 101 mg/dL (70-105); PHOSPHORUS 4.8 mg/dL (2.5-4.9); UREA NITROGEN BLOOD 34 mg/dL (7-21)
[2022-11-06 08:00] VITALS: BP 130/82; PULSE 78; RESP 22; TEMP 97.1
[2022-11-06] MEDS: QUETIAPINE FUMARATE 50MG TABLET PO SCH ×2 (08:21→20:50)
[2022-11-06] MEDS: APIXABAN 5 MG TABLET PO SCH ×2 (08:21→17:22)
[2022-11-06] MEDS: HYDRALAZINE HCL 50MG TABLET PO SCH ×2 (08:21→20:50)
[2022-11-06] MEDS: CARVEDILOL 12.5MG TABLET PO SCH ×2 (08:21→20:51)
[2022-11-06 12:32] VITALS: BP 142/77; PULSE 84; RESP 22
[2022-11-06 16:00] VITALS: BP 143/91; RESP 20; TEMP 97.8
[2022-11-06 20:00] VITALS: BP 138/80; PULSE 84; RESP 19; TEMP 98.9
[2022-11-07] VITALS: BP 120/63; PULSE 79; RESP 20; TEMP 98.2
[2022-11-07 04:00] VITALS: BP 119/70; PULSE 75; RESP 19; TEMP 98.3
[2022-11-07] MEDS: ACETAMINOPHEN 325MG TABLET PO PRN (06:24)
[2022-11-07 07:35] LABS: CALCIUM 9.6 mg/dL (8.5-10.1); POTASSIUM 4.6 mEq/L (3.5-5.1)
[2022-11-07 07:39] LABS: CREATININE 1.5 mg/dL (0.6-1.3); PHOSPHORUS 5.2 mg/dL (2.5-4.9)
[2022-11-07 07:55] LABS: BASOPHILS % 0.4 % (0.0-2.0); EOSINOPHILS % 2.3 % (0.0-5.0); HEMATOCRIT. 30.3 % (42.0-52.0); HEMOGLOBIN. 10.3 g/dL (14.0-18.0); LYMPHOCYTES % 12.8 % (20.0-50.0); MEAN CORPUSCULAR HEMOGLOBIN 32.7 pg (28.0-32.0); MEAN CORPUSCULAR HGB CONC 33.9 g/dL (31.0-37.0); MEAN CORPUSCULAR VOLUME 96.7 fL (80.0-94.0); MEAN PLATELET VOLUME 9.1 fl (7.4-10.4); MONOCYTES % 4.7 % (2.0-8.0); NEUTROPHILS % 79.8 % (40.0-76.0); PLATELET 440 x1000/uL (130-400); RED BLOOD CELL COUNT 3.14 mill/uL (4.7-6.1); RED CELL DISTRIBUTION WIDTH 14.5 % (11.6-14.6); WHITE BLOOD COUNT 10.9 x1000/uL (4.5-11.0)
[2022-11-07 08:00] VITALS: BP 129/81; PULSE 81; RESP 20; TEMP 98.4
[2022-11-07] MEDS: QUETIAPINE FUMARATE 50MG TABLET PO SCH ×2 (09:06→21:04)
[2022-11-07] MEDS: CARVEDILOL 12.5MG TABLET PO SCH ×2 (09:06→21:07)
[2022-11-07] MEDS: VANCOMYCIN 1500MG in DEXTROSE 5% WATER 250ML IV SCH (09:06)
[2022-11-07] MEDS: APIXABAN 5 MG TABLET PO SCH ×2 (09:07→16:56)
[2022-11-07] MEDS: HYDRALAZINE HCL 50MG TABLET PO SCH ×2 (09:07→21:07)
[2022-11-07 12:00] VITALS: BP 120/71; PULSE 77; RESP 26; TEMP 97.5
[2022-11-07 16:00] VITALS: BP 118/75; PULSE 76; RESP 25; TEMP 98
[2022-11-07 20:00] VITALS: BP 144/83; PULSE 73; RESP 23; TEMP 98.8
[2022-11-08] VITALS: BP 153/79; PULSE 83; RESP 22; TEMP 98.6
[2022-11-08 04:00] VITALS: BP 95/59; PULSE 77; RESP 20; TEMP 98.6
[2022-11-08 07:03] LABS: EOSINOPHILS % 2.5 % (0.0-5.0); HEMATOCRIT. 29.2 % (42.0-52.0); HEMOGLOBIN. 9.9 g/dL (14.0-18.0); LYMPHOCYTES % 12.8 % (20.0-50.0); MEAN CORPUSCULAR HEMOGLOBIN 32.6 pg (28.0-32.0); MEAN CORPUSCULAR HGB CONC 33.9 g/dL (31.0-37.0); MEAN PLATELET VOLUME 8.9 fl (7.4-10.4); MONOCYTES % 5.7 % (2.0-8.0); PLATELET 376 x1000/uL (130-400); RED BLOOD CELL COUNT 3.04 mill/uL (4.7-6.1); RED CELL DISTRIBUTION WIDTH 14.6 % (11.6-14.6); WHITE BLOOD COUNT 8.6 x1000/uL (4.5-11.0)
[2022-11-08 07:41] LABS: CHLORIDE 101 mEq/L (98-107); INDEX HEMOLYSI 1 (1-3); INDEX ICTERIC 1 (1-4); INDEX LIPEMIC 1 (1-3); POTASSIUM 5.2 mEq/L (3.5-5.1); SODIUM 132 mEq/L (136-145)
[2022-11-08 07:48] LABS: CALCIUM 9.2 mg/dL (8.5-10.1); CARBON DIOXIDE 23 mEq/L (21-32); CREATININE 1.4 mg/dL (0.6-1.3); GLUCOSE 96 mg/dL (70-105); PHOSPHORUS 4.6 mg/dL (2.5-4.9); UREA NITROGEN BLOOD 34 mg/dL (7-21)
[2022-11-08 08:00] VITALS: BP 122/78; PULSE 74; RESP 22; TEMP 98.5
[2022-11-08] MEDS: CARVEDILOL 12.5MG TABLET PO SCH (08:47)
[2022-11-08] MEDS: APIXABAN 5 MG TABLET PO SCH (08:48)
[2022-11-08] MEDS: HYDRALAZINE HCL 50MG TABLET PO SCH (08:48)
[2022-11-08] MEDS: QUETIAPINE FUMARATE 50MG TABLET PO SCH (08:48)
[2022-11-08 12:00] VITALS: BP 124/59; PULSE 79; RESP 19; TEMP 98.4
[2022-11-08] MEDS ORDERED: VANCOMYCIN 1500MG in DEXTROSE 5% WATER 250ML IV SCH (12:00)
== END 2022-11-08 16:30 | disposition left against medical advice (07) | DRG 720 ==
LOC: ER 07:19 → 3WST 10:54 → EDBEDREQ 11:26 → EDBEDREQTM 11:26
PROVIDERS: ADMIT Family Medicine Adult Medicine; ATTEND Family Medicine Adult Medicine
DX: A41.02 Sepsis due to Methicillin resistant Staphylococcus aureus (principal); N17.0 Acute kidney failure with tubular necrosis; G93.41 Metabolic encephalopathy; I50.43 Acute on chronic combined systolic (congestive) and diastolic (congestive) heart failure; I42.0 Dilated cardiomyopathy; J18.9 Pneumonia, unspecified organism; I11.0 Hypertensive heart disease with heart failure; E87.1 Hypo-osmolality and hyponatremia; Z20.822 Contact with and (suspected) exposure to COVID-19; E78.5 Hyperlipidemia, unspecified; F20.9 Schizophrenia, unspecified; D64.9 Anemia, unspecified; G47.33 Obstructive sleep apnea (adult) (pediatric); I48.91 Unspecified atrial fibrillation; R65.20 Severe sepsis without septic shock; I08.1 Rheumatic disorders of both mitral and tricuspid valves; D72.810 Lymphocytopenia; T36.8X1A Poisoning by other systemic antibiotics, accidental (unintentional), initial encounter; F17.210 Nicotine dependence, cigarettes, uncomplicated; I25.10 Atherosclerotic heart disease of native coronary artery without angina pectoris; Z82.49 Family history of ischemic heart disease and other diseases of the circulatory system; Z79.01 Long term (current) use of anticoagulants; Z53.29 Procedure and treatment not carried out because of patient's decision for other reasons; Z59.00 Homelessness unspecified; Z86.711 Personal history of pulmonary embolism; Z95.810 Presence of automatic (implantable) cardiac defibrillator; Z86.73 Personal history of transient ischemic attack (TIA), and cerebral infarction without residual deficits; Y92.89 Other specified places as the place of occurrence of the external cause
CPT/HCPCS: 36415; 71045; 71250; 73090; 74176; 80048; 80053; 80061; 80202; 80305; 81003; 82533; 82550; 82553; 83735; 83880; 83935; 84100; 84145; 84443; 84484; 85025; 85379; 86480; 86803; 87077; 87186; 87340; 87389; 87426; 93005; 93306; 97116; 97162; 97530; 99285; J0456; J0696; J1940; J2270; J3370; J7030; J7060

== ENCOUNTER 2025-03-12 13:51 | Emergency (ER) | payer OTHER ==
[~2025-03-12] VITALS: Ht 182.9 cm; Wt 130.0 kg
[~2025-03-12 13:51] MED LIST changes: -ACET-2708 MT; +AMOX1TAB16 MT; -APIX5TAB MT; -COR12 PO; -DILT90TA2 PO; -FURO40TA5 MT; +IBUP-2030 MT; -LOSA25TA3 PO; -METO5TAB7 PO; -QUET50TA PO; -TOPUD MT; -TRAM50TA3 PO
[2025-03-12 14:02] VITALS: O2SAT 98
[2025-03-12] MEDS ORDERED: SULF1TAB48 MT (18:04)
[2025-03-12] MEDS ORDERED: CEPH500T MT (18:04)
[2025-03-12] MEDS ORDERED: ACET-2708 MT (18:05)
[2025-03-12] MEDS: BACITRACIN ZINC OINT UDPKT TOP ONE (18:18)
[2025-03-12] MEDS: ACETAMINOPHEN 325MG TABLET PO ONE (18:18)
[2025-03-12 18:19] VITALS: BP 165/97; PULSE 72; RESP 16; TEMP 36.9; O2SAT 98
== END 2025-03-12 18:22 | disposition home or self-care (01) ==
LOC: ER 13:51
DX: T63.301A Toxic effect of unspecified spider venom, accidental (unintentional), initial encounter (principal); L03.113 Cellulitis of right upper limb; F20.9 Schizophrenia, unspecified; F12.90 Cannabis use, unspecified, uncomplicated; Z86.73 Personal history of transient ischemic attack (TIA), and cerebral infarction without residual deficits; Y92.89 Other specified places as the place of occurrence of the external cause
CPT/HCPCS: 73120; 99283; Z7610; A4606